=== PATIENT | male | born 1965 | race Caucasian/White ===

== ENCOUNTER → 2023-12-09 07:17 | Outpatient (REF) | payer BC, SELFPAY | LOC: HWRAD 07:17 | PROVIDERS: ATTENDING PHYSICIAN Internal Medicine Gastroenterology; FAMILY PHYSICIAN Nurse Practitioner Family | DX: K76.0 Fatty (change of) liver, not elsewhere classified (principal) | CPT/HCPCS: 76700 ==

== ENCOUNTER → 2024-06-01 06:21 | Day surgery (SDC) | payer BC, SELFPAY ==
[2024-06-01 12:54] LABS: Glucose - Point of Care 104 mg/dl (70-99)
== END ==
LOC: GI 06:21
PROVIDERS: ATTENDING PHYSICIAN Internal Medicine Gastroenterology
DX: K22.70 Barrett's esophagus without dysplasia (principal); K21.00 Gastro-esophageal reflux disease with esophagitis, without bleeding; K22.89 Other specified disease of esophagus; K31.7 Polyp of stomach and duodenum; K31.4 Gastric diverticulum
CPT/HCPCS: 43239; 88305; 82962; 88342

== ENCOUNTER → 2025-01-19 07:13 | Outpatient (REF) | payer BC, SELFPAY | LOC: HWRAD 07:13 | PROVIDERS: ATTENDING PHYSICIAN Internal Medicine Gastroenterology; FAMILY PHYSICIAN Nurse Practitioner Family | DX: K76.0 Fatty (change of) liver, not elsewhere classified (principal) | CPT/HCPCS: 76700 ==